=== PATIENT | female | born 1980 | race Caucasian/White ===

== ENCOUNTER → 2017-07-07 | Emergency (ER) | payer OTHER ==
[~2017-07-07] VITALS: Ht 162.6 cm; Wt 86.2 kg
[~2017-07-07] MED LIST: INTESTINEX1 CAP PO; KETO10TA2 PO; ZANTAC150 MG PO
== END | disposition home or self-care (01) ==
LOC: ER 00:49
DX: S93.402A Sprain of unspecified ligament of left ankle, initial encounter (principal); X50.3XXA Overexertion from repetitive movements, initial encounter; Y93.89 Activity, other specified; Y92.69 Other specified industrial and construction area as the place of occurrence of the external cause; Y99.8 Other external cause status

== ENCOUNTER 2018-04-17 17:23 | Emergency (ER) | payer OTHER ==
[~2018-04-17] VITALS: Ht 165.1 cm; Wt 90.7 kg
== END 2018-04-17 22:12 | disposition home or self-care (01) ==
LOC: ER 17:23
DX: J06.9 Acute upper respiratory infection, unspecified (principal)

== ENCOUNTER 2018-07-25 14:08 | Emergency (ER) | payer OTHER ==
[~2018-07-25] VITALS: Ht 162.6 cm; Wt 89.4 kg
== END 2018-07-25 16:04 | disposition home or self-care (01) ==
LOC: ER 14:08
DX: M26.69 Other specified disorders of temporomandibular joint (principal)

== ENCOUNTER 2020-09-24 09:53 | Emergency (ER) | payer OTHER ==
[~2020-09-24] VITALS: Ht 162.6 cm; Wt 90.7 kg
[2020-09-24] MEDS ORDERED: PLAQUENIL (10:00)
[2020-09-24] MEDS ORDERED: EVOXAC30 MG (10:02)
[2020-09-24] MEDS ORDERED: HYDROXYCHLOROQ200 MG (10:03)
[2020-09-24] MEDS ORDERED: CYCLOBENZAPRINE10 MG PO (10:55)
[2020-09-24] MEDS ORDERED: DICLOFENAC POTA50 MG PO (10:55)
== END 2020-09-24 13:34 | disposition home or self-care (01) ==
LOC: ER 09:53
DX: S93.401A Sprain of unspecified ligament of right ankle, initial encounter (principal); S93.692A Other sprain of left foot, initial encounter; X50.0XXA Overexertion from strenuous movement or load, initial encounter; Y93.89 Activity, other specified; Y92.89 Other specified places as the place of occurrence of the external cause; Y99.8 Other external cause status

== ENCOUNTER 2020-10-14 08:00 | Outpatient (CLI) | payer OTHER ==
[~2020-10-14 08:00] MED LIST changes: +CYCLOBENZAPRINE10 MG PO; +DICLOFENAC POTA50 MG PO; +EVOXAC30 MG; +HYDROXYCHLOROQ200 MG; +PLAQUENIL
== END 2020-10-14 08:30 | disposition home or self-care (01) ==
LOC: PPH VACUNA 08:00
DX: Z23 Encounter for immunization (principal)